=== PATIENT | male | born 1975 | race Caucasian/White ===

== ENCOUNTER 2023-07-09 16:46 | Emergency (ER) | payer OTHER ==
[~2023-07-09 16:46] MED LIST: Iopamidol-370 76% 500 ML MDV (1 ML CHARGE) ONE
[2023-07-09] MEDS ORDERED: fentaNYL 50 mcg/mL 1 mL Vial ONE (16:50)
[2023-07-09] MEDS ORDERED: Ondansetron PF 4 MG/2 ML Vial ONE (16:51)
[2023-07-09 17:04] LABS: #Monocytes 0.6 thou/uL (0.11-0.59); #Neutrophils 6.4 thou/uL (1.40-6.50); %Basophils 0.2 % (0.0-1.0); %Eosinophils 0.1 % (0.0-10.0); %Monocytes 6.2 % (0.0-10.0); %Neutrophils 71.9 % (42.0-75.0); Hematocrit 40.2 % (42.0-52.0); Mean Corpuscular HGB CONC 34.8 g/dL (32.0-36.0); Mean Corpuscular Hemoglobin 30.5 pg (27.0-31.0); Mean Corpuscular Volume 87.6 fl (78.0-98.0); Mean Platelet Volume 9.6 fL (7.4-10.4); Platelet Count 318 10x3/uL (130-400); RBC Distribution Width 13.4 % (11.5-14.5); Red Blood Cell (RBC) Count 4.59 mill/uL (4.70-6.10); White Blood Cell (WBC) Count 8.8 10x3/uL (4.8-10.8)
[2023-07-09 17:17] LABS: Prothrombin Time 13.3 sec (12.0-14.7)
[2023-07-09 17:19] LABS: ALT (SGPT) 44 U/L (8-55); AST (SGOT) 33 U/L (5-34); Albumin 4.6 g/dL (3.5-5.0); Alkaline Phosphatase 117 U/L (40-110); Anion Gap 15 mmol/L (10-20); BUN (Urea Nitrogen) 19 mg/dL (8.9-20.6); Bilirubin, Total 0.5 mg/dL (0.2-1.2); Calc. Creatinine Clearance 0 mL/min (70-130); Calcium 9.6 mg/dL (7.8-10.44); Carbon Dioxide 23 mmol/L (22-29); Chloride 104 mmol/L (98-107); Estimated GFR 83; Globulin 2.6 g/dL (2.4-3.5); Glucose 91 mg/dL (70-105); Potassium 3.9 mmol/L (3.5-5.1); Protein, Total 7.2 g/dL (6.0-8.3); Sodium 138 mmol/L (136-145)
== END 2023-07-09 18:11 | disposition home or self-care (01) ==
LOC: ERS 16:46
DX: S30.0XXA Contusion of lower back and pelvis, initial encounter (principal); V29.99XA Rider (driver) (passenger) of other motorcycle injured in unspecified traffic accident, initial encounter
CPT/HCPCS: 70450; 71260; 72125; 74177; 80053; 85025; 85610; 85730; 96374; 96375; G0390; J2405; J3010; Q9967